=== PATIENT | male | born 1950 | race Two or more races ===

== ENCOUNTER 2025-04-25 06:37 | Day surgery (SDC) | payer OTHER, SELFPAY ==
[2025-04-21 16:29] VITALS: BMI 29.2
--- NOTE | 2025-04-24 07:00 | EKG_ITS ---
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
[2025-04-24 17:31] LABS: Basophils # (Auto) 0.0 Thou/mm3 (0.0-0.2); Basophils % (Auto) 0 % (0-2.5); Eosinophils # (Auto) 0.2 Thou/mm3 (0.0-0.5); Eosinophils % (Auto) 3 % (0-10); Hematocrit 38.7 % (41.0-53.0); Hemoglobin 13.2 g/dL (13.5-16.0); Immature Granulocytes Auto 0.01 Thou/mm3 (0.00-0.00); Lymphocytes # (Auto) 1.7 Thou/mm3 (1.0-4.8); Lymphocytes % (Auto) 25 % (10-50); Mean Corpuscular HGB Conc 34.1 g/dl (31.0-37.0); Mean Corpuscular Hemoglobin 32.4 pg (25.0-35.0); Mean Corpuscular Volume 95 fL (80-100); Monocytes # (Auto) 0.6 Thou/mm3 (0.0-0.8); Monocytes % (Auto) 9 % (0-12); Neutrophils # (Auto) 4.1 Thou/mm3 (1.8-7.7); Neutrophils % (Auto) 62 % (37-80); Nucleated Red Blood Cell # 0.00 Thou/mm3 (0.00-0.00); Nucleated Red Blood Cell % 0 /100 WBC (0); Platelet Count 276 Thou/mm3 (140-440); RDW Standard Deviation 46.7 fL (35.1-43.9); Red Blood Count 4.07 Miln/mm3 (4.50-5.90); White Blood Count 6.7 Thou/mm3 (3.8-10.6)
[2025-04-24 17:37] LABS: Anion Gap 10 (7-16); BUN/Creatinine Ratio 9 Ratio (12-20); Blood Urea Nitrogen 16 mg/dL (9-23); Calcium 9.2 mg/dL (8.3-10.6); Carbon Dioxide 27.2 mMol/L (20.0-31.0); Chloride 107 mMol/L (98-107); Creatinine (Component) 1.7 mg/dL (0.6-1.3); Estimated Creatinine Clearance 33.3 mL/min (>60); Glucose 133 mg/dL (74-106); Osmolality,Calculated 290 (275-295); Potassium 3.7 mMol/L (3.4-5.1); Sodium 144 mMol/L (136-145); eGFR 42 See Note
[2025-04-24 17:38] LABS: INR 1.0 (0.9-1.3); Partial Thromboplastin Time 26.9 Seconds (22.0-36.0); Prothrombin Time 10.4 Seconds (9.0-12.2)
[2025-04-24 17:41] LABS: COVID-19 Antigen (In-House) Negative (Negative)
[2025-04-25] VITALS (13 sets, daily range): BP systolic 132–159; BP diastolic 79–93; PULSE 57–80; RESP 12–20; TEMP 36.5–36.8; O2SAT 95–99; BMI 28.2
[2025-04-25] MEDS: DIAZEPAM 5 MG TABLET PO (07:10)
--- NOTE | 2025-04-25 08:31 | PD.CARDCATH ---
Cardiac Cath Procedure Procedure Narrative Procedure date 04/25/2025 Title of the procedure 1.left heart catheterization 2.left coronary angiogram 3.right coronary angiogram 4.left ventriculogram 5.conscious sedation 6.radiographic interpretation 6 supervision 7.ultrasound guidance for right radial access 8.right brachial artery angiogram Indication for the procedure This is a 74-year-old gentleman with hypertension diabetes hyperlipidemia prior history of coronary artery disease Complains of atypical chest pain Cardiolite scan was equivocal Cardiac catheter and cor angiogram was recommended Procedure This is done in the cardiac lab under current electrocardiographic monitoring Intermittent blood pressure monitoring With the ultrasound guidance right radial access is obtained using modified Seldinger technique Initially we attempted to cross into the subclavian in spite of multiple attempts and techniques we were unable to do it due to severe tortuosity Subsequently we decided to proceed with right femoral access 5 Chinese sheath was placed in the right femoral artery using modified Seldinger technique JL 4 catheter was used for selective injection of the left coronary artery JR4 catheter was used for selective angiogram of the right coronary artery Pigtail catheter was used for left ventriculogram Hemodynamics Overall left ventricular systolic function appears normal Approximate ejection fraction 50% End-diastolic pressure was 18 mmHg There is no gradient across aortic valve Coronary anatomy 1.left main coronary artery appears normal 2.left anterior descending artery has mild diffuse disease with calcification, proximally there is a 50% lesion noted 3.diagonal appears to be diffusely diseased about 50 to 60% with calcification 4.circumflex shows luminal irregularities no significant lesion noted 5.obtuse marginal shows diffuse disease about 20 to 30% with calcification 6.right coronary is a dominant vessel no significant lesion noted 7.proceed descending artery has luminal irregularities 30 to 40% lesion Conclusion No significant coronary lesion Continue medical management
== END 2025-04-25 12:10 | disposition home or self-care (01) ==
PROVIDERS: PCP Internal Medicine; Referring Provider Internal Medicine; Visit Provider Internal Medicine
PROC: (CPT 93458; principal; 2025-04-25 07:30)
DX: I25.10 Atherosclerotic heart disease of native coronary artery without angina pectoris (principal); E78.5 Hyperlipidemia, unspecified; N18.9 Chronic kidney disease, unspecified; E11.22 Type 2 diabetes mellitus with diabetic chronic kidney disease; I12.9 Hypertensive chronic kidney disease with stage 1 through stage 4 chronic kidney disease, or unspecified chronic kidney disease; Z79.02 Long term (current) use of antithrombotics/antiplatelets; Z79.899 Other long term (current) drug therapy; Z79.84 Long term (current) use of oral hypoglycemic drugs
CPT/HCPCS: 93458; 36415; 75710; 80048; 85025; 85610; 85730; 87811; 93005; 99152; 99153; A4649; C1725; C1760; C1769; C1887; C1894; J0168; J0461; J0583; J1643; J2250; J2312; J2371; J3010; J3490; Q9967; A9270; J2305